=== PATIENT | female | born 1940 | race Caucasian/White ===

== ENCOUNTER → 2018-08-11 09:54 | Outpatient (CLI) | payer MEDICARE, OTHER, SELFPAY ==
[2018-08-11 10:45] LABS: Appearance Urine UA CLEAR; Bilirubin Urine UA NEGATIVE (NEGATIVE); Color Urine UA YELLOW; Glucose Urine UA NEGATIVE (Negative); Ketones Urine UA NEGATIVE (NEGATIVE); Leukocyte Esterase Urine UA TRACE (NEGATIVE); Nitrite Urine UA NEGATIVE (Negative); Occult Blood Urine UA 1+ (Negative); Protein Urine UA NEGATIVE (Negative); Specific Gravity Urine UA 1.025 (1.000-1.035); Urobilinogen Urine UA 0.2 E.U./dL (0.2)
[2018-08-11 11:06] LABS: Protein (Total) Urine Random 8 mg/dL (0-12)
[2018-08-11 11:15] LABS: Bacteria Urine Occasional (0-1); Culture Indicated Urine Specimen Cultured; RBC Urine 0-1/HPF (0-5/HPF); Squamous Epithelial Cell Urine 0-1 /HPF (0-5/HPF); WBC Urine 0-1/HPF (0-5/HPF)
[2018-08-11 11:23] LABS: Add Manual Diff / Slide Review NO; Basophils Absolute Auto 0 /uL (0-100); Basophils Percent Auto 0.8 % (0-2); Eosinophils Absolute Auto 100 /uL (0-450); Eosinophils Percent Auto 2.1 % (2-4); Hematocrit 44.5 % (36-46); Hemoglobin 14.8 g/dL (12.0-16.0); Lymphocytes Absolute Auto 1800 /uL (1100-4500); Lymphocytes Percent Auto 31.4 % (25-40); Mean Corpuscular HGB Conc 33.3 % (30-36); Mean Corpuscular Hemoglobin 34.5 PG (26-34); Mean Corpuscular Volume 103.6 fL (80-100); Monocytes Absolute Auto 400 /uL (0-900); Monocytes Percent Auto 6.9 % (3-14); Neutrophils Absolute Auto 3400 /uL (1500-7000); Neutrophils Percent Auto 58.8 % (50-75); Platelet Count 198 X10^3/uL (150-400); Red Cell Distribution Width 14.2 % (11.6-14.8); White Blood Cell Count 5.8 X10^3/uL (4.5-11.0)
[2018-08-11 11:30] LABS: Alanine Aminotransferase 26 IU/L (9-52); Albumin 4.2 g/dL (3.5-5.0); Albumin Globulin Ratio 1.6 (1.0-2.8); Alkaline Phosphatase 46 U/L (38-126); Aspartate Aminotransferase 27 IU/L (14-36); BUN Creatinine Ratio 21.7 (6-22); Bilirubin Total 0.7 mg/dL (0.2-1.3); Blood Urea Nitrogen 26 mg/dL (7-17); Calcium 9.8 mg/dL (8.4-10.2); Carbon Dioxide 30 mmol/L (22-32); Chloride 102 mmol/L (98-107); Estimated Glomerular Filt Rate 43.6 mL/min (>60); Globulin 2.7 g/dL (1.7-4.1); Glucose 73 mg/dL (80-110); HEMOLYSIS < 15 (0-50); Potassium 3.5 mmol/L (3.4-5.1); Sodium 139 mmol/L (137-145); Total Protein 6.9 g/dL (6.3-8.2)
== END ==
PROVIDERS: PCP Orthopaedic Surgery
DX: N04.0 Nephrotic syndrome with minor glomerular abnormality (principal)
CPT/HCPCS: 36415; 80053; 81001; 84156; 85025; 87086

== ENCOUNTER → 2019-01-25 08:32 | Outpatient (CLI) | payer MEDICARE, OTHER, SELFPAY ==
[2019-01-25 08:50] LABS: Bacteria Urine None Seen
[2019-01-25 09:16] LABS: Add Manual Diff / Slide Review NO; Basophils Absolute Auto 0 /uL (0-100); Basophils Percent Auto 0.6 % (0-2); Eosinophils Absolute Auto 100 /uL (0-450); Eosinophils Percent Auto 1.7 % (2-4); Hematocrit 44.3 % (36-46); Hemoglobin 14.8 g/dL (12.0-16.0); Lymphocytes Absolute Auto 1900 /uL (1100-4500); Lymphocytes Percent Auto 27.9 % (25-40); Mean Corpuscular HGB Conc 33.3 % (30-36); Mean Corpuscular Hemoglobin 34.3 PG (26-34); Mean Corpuscular Volume 102.9 fL (80-100); Monocytes Absolute Auto 500 /uL (0-900); Monocytes Percent Auto 7.4 % (3-14); Neutrophils Absolute Auto 4300 /uL (1500-7000); Neutrophils Percent Auto 62.4 % (50-75); Platelet Count 195 X10^3/uL (150-400); Red Blood Cell Count 4.31 X10^6/uL (4.0-5.2); Red Cell Distribution Width 14.4 % (11.6-14.8); White Blood Cell Count 6.9 X10^3/uL (4.5-11.0)
[2019-01-25 09:51] LABS: Alanine Aminotransferase 19 IU/L (9-52); Albumin 4.3 g/dL (3.5-5.0); Albumin Globulin Ratio 1.6 (1.0-2.8); Alkaline Phosphatase 51 U/L (38-126); Aspartate Aminotransferase 27 IU/L (14-36); BUN Creatinine Ratio 18.2 (6-22); Bilirubin Total 0.7 mg/dL (0.2-1.3); Blood Urea Nitrogen 20 mg/dL (7-17); Calcium 9.9 mg/dL (8.4-10.2); Carbon Dioxide 29 mmol/L (22-32); Chloride 104 mmol/L (98-107); Cholesterol 232 mg/dL (140-199); Estimated Glomerular Filt Rate 48.2 mL/min (>60); Globulin 2.7 g/dL (1.7-4.1); Glucose 81 mg/dL (80-110); HDL Cholesterol 96 mg/dL (40-60); HEMOLYSIS < 15 (0-50); LDL Cholesterol Calculated 111 mg/dL (<100); Potassium 3.4 mmol/L (3.4-5.1); Sodium 139 mmol/L (137-145); Triglycerides 124 mg/dL (35-150)
[2019-01-25 09:55] LABS: Appearance Urine UA SL CLOUDY; Bilirubin Urine UA NEGATIVE (NEGATIVE); Color Urine UA YELLOW; Glucose Urine UA NEGATIVE (Negative); Ketones Urine UA NEGATIVE (NEGATIVE); Leukocyte Esterase Urine UA NEGATIVE (NEGATIVE); Nitrite Urine UA NEGATIVE (Negative); Occult Blood Urine UA TRACE-INTACT (Negative); Protein Urine UA NEGATIVE (Negative); Urobilinogen Urine UA 0.2 E.U./dL (0.2)
[2019-01-25 10:36] LABS: Creatinine Urine Random 142.1 mg/dL; Protein (Total) Urine Random 13 mg/dL (0-12); Protein Creatinine Ratio Urine 0.09 GRAM/24H
[2019-01-25 11:18] LABS: Calcium Oxalate Crystals Urine Few; RBC Urine 1-5/HPF (0-5/HPF); Squamous Epithelial Cell Urine 1-5 /HPF (0-5/HPF); WBC Urine 0-1/HPF (0-5/HPF)
== END ==
PROVIDERS: PCP Orthopaedic Surgery; Visit Provider Internal Medicine
DX: N04.0 Nephrotic syndrome with minor glomerular abnormality (principal)
CPT/HCPCS: 36415; 80053; 80061; 81003; 81015; 82570; 84156; 85025

== ENCOUNTER → 2019-03-08 10:40 | Outpatient (CLI) | payer MEDICARE, OTHER, SELFPAY ==
[2019-03-08 11:54] LABS: Cholesterol 236 mg/dL (140-199); HDL Cholesterol 90 mg/dL (40-60); LDL Cholesterol Calculated 116 mg/dL (<100); Triglycerides 152 mg/dL (35-150)
== END ==
PROVIDERS: PCP Orthopaedic Surgery; Visit Provider Internal Medicine
DX: E78.5 Hyperlipidemia, unspecified (principal); N04.0 Nephrotic syndrome with minor glomerular abnormality
CPT/HCPCS: 36415; 80061

== ENCOUNTER 2020-11-28 16:30 | Emergency (ER) | payer MEDICARE, OTHER, SELFPAY ==
[2020-11-28 16:44] VITALS: BP 142/79; PULSE 74; RESP 20; TEMP 37.1; O2SAT 98
--- NOTE | 2020-11-28 16:51 | DI.RAD.S_ITS ---
PROCEDURE: XR CHEST 1V INDICATIONS: chest pain TECHNIQUE: One view of the chest was acquired. COMPARISON: KHANH Thomson, CHEST 2 VIEW, 03/25/2011, 15:50. KHANH Thomson, CHEST 2 VIEW, 08/24/2010, 9:34. FINDINGS: Surgical changes and devices: None. Lungs and pleura: Lungs are clear. No pleural effusions or pneumothorax. Mediastinum: Mediastinal contours appear normal. Heart size is normal. Bones and chest wall: No suspicious bony lesions. Overlying soft tissues appear unremarkable. IMPRESSION: Normal for age, source of current chest pain symptoms is not seen. Dictated by: Chao Sharma M.D. on 11/28/2020 at 17:35 Approved by: Chao Sharma M.D. on 11/28/2020 at 17:35
[2020-11-28 17:33] LABS: Alanine Aminotransferase 23 IU/L (<35); Albumin 4.5 g/dL (3.5-5.0); Albumin Globulin Ratio 1.6 (1.0-2.8); Alkaline Phosphatase 46 U/L (38-126); Aspartate Aminotransferase 39 IU/L (14-36); Bilirubin Total 0.7 mg/dL (0.2-1.3); Blood Urea Nitrogen 19 mg/dL (7-17); Carbon Dioxide 24 mmol/L (22-32); Chloride 107 mmol/L (98-107); Creatine Kinase 67 U/L (30-135); Estimated Glomerular Filt Rate 53.5 mL/min (>60); Globulin 2.9 g/dL (1.7-4.1); Glucose 120 mg/dL (80-110); Lipase 101 U/L (23-300); Sodium 139 mmol/L (137-145); Total Protein 7.4 g/dL (6.3-8.2)
[2020-11-28 17:34] LABS: HEMOLYSIS 108 (0-50)
[2020-11-28 17:37] LABS: Add Manual Diff / Slide Review NO; Basophils Absolute Auto 0 /uL (0-100); Basophils Percent Auto 0.7 % (0-2); Eosinophils Absolute Auto 0 /uL (0-450); Eosinophils Percent Auto 0.2 % (2-4); Hematocrit 45.8 % (36-46); Lymphocytes Absolute Auto 1000 /uL (1100-4500); Mean Corpuscular HGB Conc 32.8 % (30-36); Mean Corpuscular Volume 103.7 fL (80-100); Monocytes Absolute Auto 200 /uL (0-900); Neutrophils Absolute Auto 4900 /uL (1500-7000); Neutrophils Percent Auto 80.1 % (50-75); Platelet Count 216 X10^3/uL (150-400); Red Blood Cell Count 4.41 X10^6/uL (4.0-5.2); White Blood Cell Count 6.1 X10^3/uL (4.5-11.0)
--- NOTE | 2020-11-28 19:36 | ED_ITS ---
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 this morning after finishing her usual gentle exercise program which consists of a rowing machine, light weightlifting and balance exercises. She notes the pain lasted approximately 30 minutes. She had no associated symptoms with this. She notes that she had this happened 2 other times over the last 30 days. Again the central chest pressure with no associated symptoms. Related Data Home Medications Medication Instructions Recorded Confirmed [CALCIUM WITH VIT D] #0 08/28/10 mycophenolate mofetil 250 mg 500 mg PO BID #0 08/28/10 capsule (CellCept) VITAMIN D (Vitamin D3) #0 12/05/11 cromolyn 5.2 mg/spray (4 %) nasal 13 ml NS BIDP PRN #0 09/03/16 spray (Nasalcrom) diphenhydramine HCl 25 mg tablet 25 mg PO Q6HP PRN #0 09/03/16 (Benadryl Allergy) hydrocodone 10 mg-chlorpheniramine 5 ml PO HSP PRN #0 09/03/16 8 mg/5 mL oral susp extend.rel 12hr (Tussionex Pennkinetic ER) Previous Rx's Medication Instructions Recorded ciclopirox 8 % topical solution 3.3 ml TP HSP #1 % 05/31/16 (Penlac) raloxifene 60 mg tablet (Evista) 60 mg PO QDAY #90 tab 07/01/16 valacyclovir 1 gram tablet 1,000 mg PO SEE INSTRUCTIONS #5 tab 07/05/16 valacyclovir 500 mg tablet 500 mg PO Q DAY #90 tab 07/08/16 albuterol sulfate 90 mcg/actuation 1 puff INH SEE INSTRUCTIONS #8 gm 09/03/16 aerosol inhaler (Ventolin HFA) azithromycin 250 mg tablet 250 mg PO QDAY #6 tab 09/03/16 (Zithromax) hydrocodone 10 mg-chlorpheniramine 5 ml OR BID #120 ml 09/03/16 8 mg/5 mL oral susp extend.rel 12hr (Tussionex Pennkinetic ER) loperamide 2 mg capsule 2 mg PO PRN #30 cap 11/28/16 Allergies Allergy/AdvReac Type Severity Reaction Status Date / Time niacin Allergy Severe flush & Unverified 07/23/17 11:49 fainting tetracycline Allergy Severe ANGIOEDEMA Unverified 07/23/17 11:49 ofloxacin Allergy Unknown Unverified 07/23/17 11:49 Review of Systems Review of Systems Narrative: Pertinent positive and negative findings as per HPI Remainder of review of systems is otherwise unremarkable for Constitutional: Fevers, chills, weakness ENT: No sore throat, neck pain, ear pain CV: palpitations, Respiratory: Cough, wheeze, dyspnea GI: Nausea, vomiting, diarrhea, : Dysuria, hematuria, Patient History Medical History (Updated 11/28/20 @ 19:54 by Savannah Sabillon MD) Nephrotic syndrome Surgical History History of cataract removal with insertion of prosthetic lens History of third molar tooth extraction Status post breast biopsy Status post colonoscopy Status post tubal ligation Substance Use Type: marijuana Exam Narrative Exam Narrative: General: Healthy appearing, in no acute distress. Able to give a complete and coherent history. Well-nourished well-developed HEENT: Moist mucous membranes, normal sclera with reactive pupils, Neck: No JVD, supple Respiratory: Lungs are clear to auscultation, no wheezing no rales no rhonchi. Full and symmetrical air movement Cardiac: Regular rate and rhythm no murmurs no bruits Abdomen: Soft, nontender, good bowel tones, no flank pain Skin: Warm and dry, no rashes Neurologic: Grossly neurologically intact with no obvious asymmetries or abnormalities Extremities: No trauma, well perfused Psych: Cooperative, appropriate insight and affect Initial Vital Signs Initial Vital Signs: Vital Signs Temperature 98.7 F 11/28/20 16:44 Pulse Rate 74 11/28/20 16:44 Respiratory Rate 20 11/28/20 16:44 Blood Pressure 142/79 H 11/28/20 16:44 Pulse Oximetry 98 11/28/20 16:44 Scores HEART Score Heart Score history: Slightly Suspicious Heart Score EKG: Normal Heart Score Age: > or = 65 years old Heart Score risk factors: No known risk factors Heart Score troponin: < or = to normal limit Heart Score Total: 2 Course Orders Ordered: ED Orders 11/28/20 16:51 XR chest 1V Stat 11/28/20 17:00 EKG-12 Lead Stat 11/28/20 17:10 Complete Blood Count AUTO DIFF Stat Comprehensive Metabolic Panel Stat Lipase Stat Troponin & CK Cardiac Panel Stat Vital Signs Vital signs: Vital Signs - 8 hr 11/28/20 16:44 Temperature 98.7 F Pulse Rate 74 Respiratory Rate 20 Blood Pressure 142/79 H Pulse Oximetry 98 MDM - Chest Pain Lab Data Result diagrams: 11/28/20 17:10 11/28/20 17:10 Labs: Lab Results 11/28/20 11/28/20 Range/Units 17:10 17:10 WBC 6.1 (4.5-11.0) X10^3/uL RBC 4.41 (4.0-5.2) X10^6/uL Hgb 15.0 (12.0-16.0) g/dL Hct 45.8 (36-46) % MCV 103.7 H (80-100) fL MCH 34.0 (26-34) PG MCHC 32.8 (30-36) % RDW 14.0 (11.6-14.8) % Plt Count 216 (150-400) X10^3/uL Neut % (Auto) 80.1 H (50-75) % Lymph % (Auto) 16.0 L (25-40) % J[place] % (Auto) 3.0 (3-14) % Eos % (Auto) 0.2 L (2-4) % Baso % (Auto) 0.7 (0-2) % Neut # (Auto) 4900 (3132-1543) /uL Lymph # (Auto) 1000 L (1407-3098) /uL J[place] # (Auto) 200 (0-900) /uL Eos # (Auto) 0 (0-450) /uL Baso # (Auto) 0 (0-100) /uL Sodium 139 (137-145) mmol/L Potassium 5.0 (3.4-5.1) mmol/L Chloride 107 (98-107) mmol/L Carbon Dioxide 24 (22-32) mmol/L BUN 19 H (7-17) mg/dL Creatinine 1.00 (0.52-1.04) mg/dL Estimated GFR 53.5 L (>60) mL/min BUN/Creatinine Ratio 19.0 (6-22) Glucose 120 H (80-110) mg/dL Calcium 10.0 (8.4-10.2) mg/dL Total Bilirubin 0.7 (0.2-1.3) mg/dL AST 39 H (14-36) IU/L ALT 23 (<35) IU/L Alkaline Phosphatase 46 (38-126) U/L Total Creatine Kinase 67 (30-135) U/L CK-MB (CK-2) TNP CK-MB (CK-2) Rel Index TNP Troponin I 0.020 (0.01-0.034) ng/mL Total Protein 7.4 (6.3-8.2) g/dL Albumin 4.5 (3.5-5.0) g/dL Globulin 2.9 (1.7-4.1) g/dL Albumin/Globulin Ratio 1.6 (1.0-2.8) Lipase 101 (23-300) U/L Imaging Data Chest x-ray: Radiologist's Impression: INDINGS: Surgical changes and devices: None. Lungs and pleura: Lungs are clear. No pleural effusions or pneumothorax. Mediastinum: Mediastinal contours appear normal. Heart size is normal. Bones and chest wall: No suspicious bony lesions. Overlying soft tissues appear unremarkable. IMPRESSION: Normal for age, source of current chest pain symptoms is not seen. Dictated by: Chao Sharma M.D. on 11/28/2020 at 17:35 ECG Data Interpretation: EKG by medics at 12:22 p.m. Sinus rhythm at a rate of 70 Normal axis, normal intervals Nonspecific T-wave changes anteriorly EKG in the ER 1700 Sinus rhythm at a rate of 70 Normal intervals, normal axis Nonspecific ST T wave changes No acute ischemia, no significant changes MDM Narrative Medical decision making narrative: 80-year-old woman presents with 30 minutes of central chest pressure with no associated symptoms otherwise. Resolved spontaneously but did occur after exercise. She has had 2 similar symptoms over the last month with no relation to exercise. She does exercise regularly. Initial cardiac workup today is unremarkable with heart score of 2. Low risk for acute coronary syndrome at this time and home discharge is felt to be safe. There is no evidence for acute infection, COVID, pneumothorax, widened mediastinum, congestive heart failure or pulmonary embolism. She may well benefit from outpatient cardiac stress testing for additional risk stratification. Questions are answered and she is safe for home discharge Discharge Plan Departure Patient Disposition: Home Clinical Impression: Atypical chest pain Instructions: DI for Atypical Chest Pain Activity Restrictions/Additional Instructions: Thank you for coming in today I agree that the central chest pressure lasting 30 minutes is concerning and I am very glad you did come over for further evaluation. Fortunately, I did not find anything that looks like an acute heart attack or an acute heart attack like syndrome. I found no evidence of infection, collapsed lungs, blood clots in her lungs or other reasons for hospitalization at this time. I would encourage you to follow-up with Dr. Dominguez and outpatient cardiac stress testing may be appropriate. If you have any worsening symptoms please feel free to return to the ER Prescriptions: No Action mycophenolate mofetil [CellCept] 250 MG capsule 500 mg PO BID Qty: 0 RF: 0 [CALCIUM WITH VIT D] Qty: 0 RF: 0 VITAMIN D (Vitamin D3) Qty: 0 RF: 0 ciclopirox [Penlac] 6.6 ML solution 3.3 ml TP HSP Qty: 1 RF: 0 raloxifene [Evista] 60 MG tablet 60 mg PO QDAY Qty: 90 RF: 3 valacyclovir 1,000 MG tablet 1,000 mg PO SEE INSTRUCTIONS Qty: 5 RF: 2 valacyclovir 500 MG tablet 500 mg PO Q DAY Qty: 90 RF: 1 diphenhydramine HCl [Benadryl Allergy] 25 MG tablet 25 mg PO Q6HP PRNQty: 0 RF: 0 cromolyn [Nasalcrom] 26 ML spray,non-aerosol 13 ml NS BIDP PRNQty: 0 RF: 0 hydrocodone-chlorpheniramine [Tussionex Pennkinetic ER] 115 ML suspension, extended rel 12 hr 5 ml PO HSP PRNQty: 0 RF: 0 hydrocodone-chlorpheniramine [Tussionex Pennkinetic ER] 115 ML suspension,extended rel 12 hr 5 ml OR BID Qty: 120 RF: 0 azithromycin [Zithromax] 250 MG tablet 250 mg PO QDAY Qty: 6 RF: 0 albuterol sulfate [Ventolin HFA] 90 MCG/PUFF HFA aerosol inhaler 1 puff INH SEE INSTRUCTIONS Qty: 8 RF: 0 loperamide 2 MG capsule 2 mg PO PRN Qty: 30 RF: 1 Referrals: Jett Dominguez MD [Primary Care Provider] -
[2020-11-28 20:02] VITALS: BP 139/75; PULSE 64; RESP 16; O2SAT 97
== END 2020-11-28 20:04 | disposition home or self-care (01) ==
PROVIDERS: Emergency Medicine; Emergency Provider Emergency Medicine; PCP Orthopaedic Surgery
DX: R07.89 Other chest pain (principal)
CPT/HCPCS: 36415; 71045; 80053; 82550; 83690; 84484; 85025; 93005; 93010; 99283; 99284

== ENCOUNTER → 2021-10-09 10:53 | Outpatient (CLI) | payer MEDICARE, OTHER, SELFPAY ==
--- NOTE | 2021-10-09 | DI.RAD.S_ITS ---
PROCEDURE: XR FINGER LT MIN 2V INDICATIONS: Fall TECHNIQUE: AP hand, 2 views of the left 2nd finger(s) acquired. COMPARISON: None. FINDINGS: Bones: No fractures or dislocations. No suspicious bony lesions. 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 Soft tissues: No suspicious soft tissue calcifications. IMPRESSION: Osteoarthritis as described above. No fracture. No acute osseous lesion. If symptoms and/or clinical suspicion for pathology persists, further assessment with repeat radiographs (7-10 days) or advanced imaging (e.g. CT, MRI or bone scan) should be considered. Dictated by: Mari Alonso MD, PhD on 10/09/2021 at 15:18 Approved by: Mari Alonso MD, PhD on 10/09/2021 at 15:36
== END ==
PROVIDERS: PCP Family Medicine; Referring Provider Family Medicine; Visit Provider Family Medicine
DX: M79.645 Pain in left finger(s) (principal); M25.442 Effusion, left hand; W19.XXXS Unspecified fall, sequela; M19.042 Primary osteoarthritis, left hand
CPT/HCPCS: 73140

== ENCOUNTER → 2023-01-01 14:37 | Outpatient (CLI) | payer MEDICARE, OTHER, SELFPAY ==
--- NOTE | 2023-01-01 | DI.US.S_ITS ---
PROCEDURE: US EXTREMITY NONVASC LOWER RT INDICATIONS: lipomatous neoplasm of skin TECHNIQUE: Real-time scanning was performed of the right calf, with image documentation. COMPARISON: None. FINDINGS: Ill-defined heterogeneously hypoechoic lesion is seen corresponding the palpable area of concern measuring 1.8 x 1.7 x 1.4 cm. There is posterior acoustic shadowing. The lesion appears to be located within the superficial portion of the medial gastrocnemius muscle. IMPRESSION: Ill-defined 1.8 cm solid masslike area corresponds to the palpable abnormality in the right calf. Recommend MRI with and without contrast for further evaluation if there is no contraindication. Approved by: Nate Mcelroy M.D. on 01/01/2023 at 21:39
== END ==
PROVIDERS: PCP Family Medicine; Referring Provider Family Medicine; Visit Provider Family Medicine
DX: D17.23 Benign lipomatous neoplasm of skin and subcutaneous tissue of right leg (principal)
CPT/HCPCS: 76882

== ENCOUNTER → 2024-07-20 11:44 | Outpatient (CLI) | payer MEDICARE, OTHER, SELFPAY ==
--- NOTE | 2024-07-20 11:46 | DI.US.S_ITS ---
PROCEDURE: US EXTREMITY NONVASC LOWER RT INDICATIONS: LIPOMA RT LOWER EXT TECHNIQUE: Real-time scanning was performed of the right lower leg, with image documentation. COMPARISON: [facility], [place], US EXTREMITY NONVASC LOWER RT, 01/01/2023, 14:44. FINDINGS: Focused ultrasound examination in right calf region at patient's reported area of palpable lump shows ill-defined hypoechoic area within medial head of right gastrocnemius muscle and measures 1.5 x 1.4 x 1.1 cm in size with internal vascularity and shadowing calcifications. This is smaller in size compared to previous study which measured at 1.7 x 1.8 x 1.4 cm in size. IMPRESSION: Interval slight decrease in size of patient's known solid mass within possibly medial head of gastrocnemius muscle. Finding is more suggestive of a benign process in right calf given its stable nature. If indicated, MRI of right lower leg without and with contrast can be done for further evaluation. Dictated by: Stefano Bloom M.D. on 07/20/2024 at 19:08 Approved by: Stefano Bloom M.D. on 07/20/2024 at 19:11
== END ==
PROVIDERS: PCP Family Medicine; Referring Provider Physician Assistant; Visit Provider Physician Assistant
DX: D17.23 Benign lipomatous neoplasm of skin and subcutaneous tissue of right leg (principal)
CPT/HCPCS: 76882